=== PATIENT | female | born 1980 | race Caucasian/White ===

== ENCOUNTER 2017-04-29 21:55 | Emergency (ER) | payer OTHER ==
[~2017-04-29] VITALS: Ht 165.1 cm; Wt 56.7 kg
[2017-04-29 22:00] VITALS: BP 128/83
--- NOTE | 2017-04-29 23:28 | NUR ---
CALLED PT NAME X 3. PT LEFT PER ADMITTING
== END 2017-04-30 01:19 | disposition left against medical advice (07) ==
LOC: ER 21:59
DX: Z53.21 Procedure and treatment not carried out due to patient leaving prior to being seen by health care provider (principal)
CPT/HCPCS: A4606; Z7610